=== PATIENT | male | born 1970 | race Caucasian/White ===

== ENCOUNTER 2016-10-01 22:09 | Emergency (ER) | payer SELFPAY ==
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
[~2016-10-01 22:09] MED LIST: 0.9% Sodium Chloride 1,000 ML IV ONE
[2016-10-01] MEDS ORDERED: HYDROmorphone 0.5 mg/0.5 mL iSecure Syringe IVPUSH PRN (22:10)
[2016-10-01] MEDS ORDERED: Ondansetron 2 mg/mL 2 mL Inj IVPUSH PRN (22:10)
[2016-10-01 22:28] LABS: BASOPHILS % (AUTO) 0 % (0-3); EOSINOPHILS % (AUTO) 3 % (0-5); MONOCYTES % (AUTO) 8 % (4-12); Mean Corpuscular Hemoglobin 28.6 pg (27.0-35.0); Mean Corpuscular Volume 85 fL (81-100); NEUTROPHILS % (AUTO) 68 % (40-74); Platelet Count 239 bil/L (150-400)
[2016-10-01] MEDS ORDERED: TdaP Vaccine 0.5 mL Inj IM ONE (22:35)
[2016-10-01 22:46] LABS: INR 0.93 ratio
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
== END 2016-10-02 01:30 | disposition home or self-care (01) ==
LOC: SED 22:09
DX: S81.841A Puncture wound with foreign body, right lower leg, initial encounter (principal); S71.142A Puncture wound with foreign body, left thigh, initial encounter; S11.84XA Puncture wound with foreign body of other specified part of neck, initial encounter; S01.01XA Laceration without foreign body of scalp, initial encounter; S60.511A Abrasion of right hand, initial encounter; T59.3X4A Toxic effect of lacrimogenic gas, undetermined, initial encounter; X94.0XXA Assault by shotgun, initial encounter; Y00.XXXA Assault by blunt object, initial encounter; Y08.89XA Assault by other specified means, initial encounter; Y92.9 Unspecified place or not applicable; Y93.9 Activity, unspecified; Y99.8 Other external cause status; Z23 Encounter for immunization
CPT/HCPCS: 36415; 70360; 70450; 71010; 73551; 73590; 80053; 85014; 85018; 85025; 85610; 85730; 86850; 90471; 90715; 96374; 96375; 99285; G0390; G0480; J1170; J2405